=== PATIENT | female | born 1950 | race Caucasian/White ===

== ENCOUNTER 2020-09-29 10:03 | Outpatient (AMBR) | payer MEDICARE, MEDICAID, SELFPAY ==
--- NOTE | 2020-09-29 10:47 | PTNOTE_ITS ---
PT OP Initial Eval Patient Information Visit Reasons: power wheelchair eval Medical Diagnosis: S72.302 K; RA Treatment Dx #1: General Weakness Start of Care: 09/29/20 Date of Onset: 2016 Initial Assessment Subjective Pt is a 69 y/o female with a non healing right femur fracture with severe RA t hat's been w/c bound since 2016. Pt mention that since her fall and fracture Pt has not been able to walk or transfer. Pt has seen many specialist but no one has been able to do anything about the fracture due to her weight. Pt has limitation with all functional tasks and sleeps in a hospital beds. Pt will like a new power w/c due to her current one is broken and is not safe to use on a daily basis. Objective BUE AROM: all motions are 25% towards end range BUE MMTs: grossly 2-/5 Bilateral LE AROM: all motions are 25% towards end range with no noted AROM in the right LE Bilateral LE MMTs: grossly 2-/5 Assessment Pt demonstrate decrease bilateral UE and LE strength and ROM limitation leading to difficulty with ADLs. Due to Pt's co-morbidity and overall condition Pt will benefit from power w/c to help improve her overall independence. Pt was evaluated and d/c from care, thank you for your referrals [employer] Goals 1) Eval and D/C 2) Recommend power w/c Treatment Plan Eval and D/C Frequency and Duration 1x Certification Dates: 09/29/20 to 12/30/20 Office Procedures PT Procedures PT Date of Service: 09/29/20 OP PT Eval Mod Complex 30 minutes: Yes
== END 2020-10-09 23:59 | disposition home or self-care (01) ==
PROVIDERS: PCP Physician Assistant; Referring Provider Physician Assistant; Visit Provider Physician Assistant
DX: Z46.89 Encounter for fitting and adjustment of other specified devices (principal); Z99.3 Dependence on wheelchair; S72.302K Unspecified fracture of shaft of left femur, subsequent encounter for closed fracture with nonunion; M06.9 Rheumatoid arthritis, unspecified; R53.1 Weakness; W19.XXXD Unspecified fall, subsequent encounter
CPT/HCPCS: 97162